=== PATIENT | male | born 1975 | race American Indian/Alaskan Native ===

== ENCOUNTER 2017-07-21 01:01 | Emergency (ER) | payer SELFPAY ==
[2017-07-21 01:11] VITALS: BP 119/81
[2017-07-21] MEDS ORDERED: DECADRON IM ONE (05:43)
--- NOTE | 2017-07-21 05:47 | Emergency Department Report ---
ED Rash HPI - HPI Chief Complaint: Skin Rash Stated Complaint: RASH Time Seen by Provider: 07/21/17 04:20 Duration: 2 Days Location: Neck Suspected Cause: Unknown (possibly new detergent) Rash Symptoms: Yes Itching, No Facial Swelling, No Tongue/Oral Swelling, No Breathing Difficulties, No Choking Sensation, No Wheezing/Dyspnea, No Peeling, No Blistering, No Fever, No Lightheaded, No Malaise, No Myalgias Severity: moderate Other History: This is a 42 y.o. male that presents with itchy rash around neck for 2 days. Patient reports changing detergent a week ago and wearing a turtle neck sweater. He noticed rash 2 days after wearing sweater and can't think of anything else that would cause the rash. He is applying neosporin and cortizone 10 cream with no improvement of rash. Reports rash as itching worse and spreading to left side. Patient reports rash was only on the right but now it's on both sides of neck. Denies difficulty breathing, swallowing, swollen tongue, drooling, SOB, or fever. ED Review of Systems ROS: Stated complaint: RASH Other details as noted in HPI Constitutional: denies: chills, fever ENT: denies: ear pain, throat pain, dental pain, congestion Respiratory: denies: cough, shortness of breath, SOB with exertion, wheezing Cardiovascular: denies: chest pain, palpitations Gastrointestinal: denies: abdominal pain, nausea, diarrhea Skin: rash (around neck ). denies: lesions, change in color, change in hair/ nails, pruritus Neurological: denies: headache, weakness, numbness, paresthesias Psychiatric: denies: anxiety, depression ED Past Medical Hx - Past Medical History Previous Medical History?: No - Surgical History Past Surgical History?: No - Social History Smoking Status: Never Smoker Substance Use Type: None - Medications Home Medications: Home Medications Medication Instructions Recorded Confirmed Last Taken Type Triamcinolone 0.1% [Kenalog 0.1% 1 applic TP TID #1 tube 07/21/17 Unknown Rx OINT] hydrOXYzine PAMOATE [Vistaril] 25 mg PO Q6HR PRN #15 capsule 07/21/17 Unknown Rx Rash Exam - Exam General: Vital signs noted. No distress. Alert and acting appropriately. HEENT: No Periorbital Edema, No Conjuctival Injection, No Chemosis, No Perioral Edema, No Tongue Edema, No Uvular Edema, No Compromised Airway, No Drooling Lungs: Yes Good Air Exchange (Normal Breath Sounds), No Wheezes, No Ronchi, No Stridor, No Cough, No Labored Respirations, No Retractions, No Use of Accessory Muscles, No Other Abnormal Lung Sounds Heart: Yes Regular, No Murmur Skin: Yes Maculopapular Rash (erythematous maculopapular rash to right and left side of neck), Yes Erythema, No Urticarial Rash, No Morbilliform rash, No Bulla( e), No Excoriations, No Weeping, No Tenderness, No Edema, No Encrustations, No Other ED Course Vital Signs 07/21/17 07/21/17 01:03 01:07 Temperature 98.2 F 98.2 F Pulse Rate 70 75 Respiratory 18 Rate Blood Pressure 119/81 119/81 O2 Sat by Pulse 100 99 Oximetry ED Medical Decision Making - Medical Decision Making This is a 42 y.o. A.A. male with a rash on neck for 2 days. He is applying neosporin and cortizone 10 cream to rash with minimal improvement of symptoms. Patient examined by me. No distress noted. Vitals stable. Patient is drinking fluids w/o distress in ER. Physical assessment susceptible of allergic contact dermatitis. Given Decadron 8 mg IM once in ER. Start triamcinolone cream, vistaril, and f/u with PCP in 24-72 hours. Discussed plan with patient and agreed to ER plan. Critical care attestation.: If time is entered above; I have spent that time in minutes in the direct care of this critically ill patient, excluding procedure time. ED Disposition Clinical Impression: Allergic contact dermatitis Qualifiers: Contact dermatitis trigger: unspecified trigger Qualified Code(s): L23.9 - Allergic contact dermatitis, unspecified cause Disposition: - TO HOME OR SELFCARE Is pt being admited?: No Does the pt Need Aspirin: No Condition: Stable Instructions: Contact Dermatitis (ED) Additional Instructions: Follow up with primary care provider for further testing. Take benadryl if difficulty swallowing, drooling, or SOB and return to ER. Apply a thin layer of steroid cream to affected area three times a day. Try to document whatever you come in contact with that cause irritation to skin to identify triggers to avoid. Prescriptions: hydrOXYzine PAMOATE [Vistaril] 25 mg PO Q6HR PRN #15 capsule PRN Reason: Itching Triamcinolone 0.1% [Kenalog 0.1% OINT] 1 applic TP TID #1 tube Referrals: [facility] [Outside] - 3-5 Days [facility] [Outside] - 3-5 Days [facility] [Outside] - 3-5 Days Forms: Work/School Release Form(ED) Time of Disposition: 05:48 Print Language: ALGERIAN
== END 2017-07-21 06:00 | disposition home or self-care (01) ==
LOC: ED 01:01
DX: L23.9 Allergic contact dermatitis, unspecified cause (principal)
CPT/HCPCS: 96372; 99281; J1100